=== PATIENT | female | born 1985 ===

== ENCOUNTER 2021-08-14 14:41 | Emergency (ER) | payer SELFPAY ==
[2021-08-14 14:49] VITALS: BP 126/79
== END 2021-08-14 18:45 | disposition left against medical advice (07) ==
LOC: ED 14:41
DX: T63.441A Toxic effect of venom of bees, accidental (unintentional), initial encounter (principal); Y92.89 Other specified places as the place of occurrence of the external cause; Z53.21 Procedure and treatment not carried out due to patient leaving prior to being seen by health care provider